=== PATIENT | female | born 1950 | race Caucasian/White ===

== ENCOUNTER 2022-02-16 10:05 | Outpatient (CLI) | payer MEDICARE, SELFPAY ==
--- NOTE | 2022-02-16 10:20 | MRI_ITS ---
STUDY: MRI BRAIN WITH AND WITHOUT CONTRAST (ATTENTION INTERNAL AUDITORY CANALS - I.A.C.''s) REASON FOR EXAM: Female, 71 years old. VERTIGO X 2 1/2 YEARS. HX OF STAPENDECTOMY IN LEFT EAR IN 1989. NO PREVIOUS EXAMS. TECHNIQUE: Standardized multiplanar fat and water weighted pulse sequences were obtained. ml of 24mL dOTAREM contrast material was administered intravenously for the contrast portion of the examination. COMPARISON: None. FINDINGS: Normal bilateral temporal bones. Normal bilateral internal auditory canals. There is no demonstrated intracanalicular or cisternal vestibular schwannoma (acoustic neuroma). There is no enhancement of the bilateral VIIth or VIIIth cranial nerves. Normal bilateral cochlea, vestibules and semicircular canals. Unremarkable mastoid air cells. Very small focus of soft tissue in the deep aspect of the left external auditory canals/tympanic window junction most likely representing postoperative scarring from prior reported history of stapedectomy. CT of the temporal bones can be obtained to evaluate the inner ear ossicles and other structures not well detected by MR imaging. No visualized cholesteatoma or other soft tissue mass or suspicious process. There is mild cerebral atrophy with widening of the extra-axial spaces and ventricular dilatation. There are a limited number of small white matter hyperintensities, distributed throughout the deep white matter tracts of the cerebral hemispheres, consistent with mild chronic white matter ischemic changes. There is no evidence for recent intracranial ischemia or other cause of cytotoxic edema on diffusion weighted imaging (DWI). Normal bilateral basal ganglia. Normal thalami. Normal flow voids within the major intracranial circulation suggesting patency by spin echo criteria. Normal venous enhancement. There is no enhancing intra-axial or extra-axial abnormality. There is no extra-axial fluid accumulation. Normal sella turcica, pituitary gland, infundibular stalk, optic chiasm and hypothalamus. Normal tectal plate and pineal gland. Normal midbrain, jazzy and medulla. Normal cerebellum. Normal basal cisterns. No demonstrated orbital abnormality, within the constraints of a routine brain study. Normal visualized paranasal sinuses. Normal calvarium and skull base. Normal visualized soft tissue structures. Normal visualized upper cervical spine. MRI/Brain W/WO Contrast IMPRESSION: 1. Involutional changes of the brain, as described above. 2. No acute infarct. 3. Normal unenhanced and enhanced MRI of the bilateral internal auditory canals (I.A.C''s). 4. . Unremarkable mastoid air cells. Very small focus of soft tissue in the deep aspect of the left external auditory canals/tympanic window junction most likely representing postoperative scarring from prior reported history of stapedectomy. CT of the temporal bones can be obtained to evaluate the inner ear ossicles and other structures not well detected by MR imaging. 5. No visualized cholesteatoma or other soft tissue mass or suspicious process. Electronically Signed: Elmer Webster MD at 15:17 EDT ,
[2022-02-16 10:36] LABS: CREATININE FINGERSTICK < 0.6 mg/dL (0.55-1.02); EGFR FINGERSTICK > 60.0000 mL/min (>60)
== END 2022-02-16 23:59 | disposition home or self-care (01) ==
LOC: MRI 10:08
PROVIDERS: PCP Family Medicine; Referring Provider Otolaryngology Otolaryngology/Facial Plastic Surgery; Visit Provider Otolaryngology Otolaryngology/Facial Plastic Surgery
DX: R27.0 Ataxia, unspecified (principal); E11.9 Type 2 diabetes mellitus without complications
CPT/HCPCS: 70553; A9575